=== PATIENT | female | born 1960 | race Caucasian/White ===

== ENCOUNTER 2017-04-28 13:55 | Outpatient (CLI) ==
[2017-04-28 14:02] LABS: BASOPHILS % (AUTO) 0.5 % (0.0-3.0); EOSINOPHILS # (AUTO) 0.1 K/ul (0.0-0.7); EOSINOPHILS % (AUTO) 2.3 % (0.0-7.0); HEMATOCRIT 41.5 % (37.0-47.0); HEMOGLOBIN 14.6 g/dl (12.0-16.0); IMMATURE GRANULOCYTE % (AUTO) 0.2 % (0.0-5.0); LYMPHOCYTES # (AUTO) 1.5 K/uL (0.60-3.4); MEAN CORPUSCULAR HEMOGLOBIN 32.1 pg (27.0-31.0); MEAN CORPUSCULAR HGB CONC 35.2 (31.8-35.4); MEAN CORPUSCULAR VOLUME 91.2 fl (81.0-99.0); MONOCYTES # (AUTO) 0.2 K/uL (0.4-2.0); MONOCYTES % (AUTO) 5.5 (0-10); NEUTROPHILS # (AUTO) 2.5 K/ul (2.0-6.9); NEUTROPHILS % (AUTO) 56.5; PLATELET COUNT 253 10^3/uL (140-440); RED BLOOD COUNT 4.55 10^6/ul (4.20-5.40); WHITE BLOOD COUNT 4.34 K/ul (4.6-10.2)
[2017-04-28 14:30] LABS: ALBUMIN 4.2 g/dL (3.4-5.0); ALBUMIN/GLOBULIN RATIO 1.2; ANION GAP 13.1; BILIRUBIN,TOTAL 0.53 mg/dL (0.00-1.20); BUN/CREATININE RATIO 15.38; CREATININE 0.78 mg/dL (0.60-1.30); POTASSIUM 4.1 mmol/L (3.5-5.10); TOTAL PROTEIN 7.7 g/dL (6.4-8.2)
[2017-04-30 02:09] LABS: HEPATITIS C QUANTITATION HCV Not Detected IU/mL (.)
== END 2017-04-28 13:56 | disposition home or self-care (01) ==
LOC: LAB 13:55
PROVIDERS: ATTEND Emergency Medicine
DX: B18.2 Chronic viral hepatitis C (principal); K27.9 Peptic ulcer, site unspecified, unspecified as acute or chronic, without hemorrhage or perforation
CPT/HCPCS: 36415; 80053; 80074; 85025; 87522

== ENCOUNTER 2018-10-09 15:17 | Outpatient (CLI) | END 2018-10-09 15:18 | disposition home or self-care (01) | LOC: RHC-LAB 15:17 → FCC-LAB 15:18 | PROVIDERS: ATTEND Family Medicine | DX: Z00.00 Encounter for general adult medical examination without abnormal findings (principal); D64.9 Anemia, unspecified; Z78.0 Asymptomatic menopausal state | CPT/HCPCS: 36415; 80053; 80061; 82306; 82607; 82670; 83001; 83002; 84443; 85025 ==

== ENCOUNTER 2019-03-21 14:53 | Outpatient (CLI) | END 2019-03-21 14:54 | disposition home or self-care (01) | LOC: LAB 14:53 | PROVIDERS: ATTEND Family Medicine | DX: R10.11 Right upper quadrant pain (principal); R10.84 Generalized abdominal pain; R19.7 Diarrhea, unspecified | CPT/HCPCS: 36415; 80053; 85025 ==

== ENCOUNTER 2019-03-26 07:51 | Outpatient (CLI) ==
--- NOTE | 2019-03-26 09:21 | US ---
EXAM: Limited abdominal sonogram. HISTORY: Right upper quadrant pain TECHNIQUE: Real time with duplex. COMPARISON: None FINDINGS: The liver measures up to 12.9 cm in length. The liver demonstrates normal echogencity. There is no intrahepatic biliary dilation. The portal vein is patent and antegrade. The visualized pancreas is unremarkable. The gallbladder wall measures 0.22 cm. No evidense of cholelithisis. The common bile duct measureres 0.26 cm. The right kidney measures 11.4 x 3.7 x 4.1 cm. There is no hydronephrosis or renal calculus. IMPRESSION: Normal right upper quadrant sonogram.
== END 2019-03-26 07:52 | disposition home or self-care (01) ==
LOC: RAD 07:51
PROVIDERS: ATTEND Family Medicine
DX: R10.11 Right upper quadrant pain (principal); K27.9 Peptic ulcer, site unspecified, unspecified as acute or chronic, without hemorrhage or perforation; R10.84 Generalized abdominal pain; R19.7 Diarrhea, unspecified
CPT/HCPCS: 82272; 87086; 87338